=== PATIENT | male | born 1950 | race Caucasian/White ===

== ENCOUNTER 2020-08-01 06:06 | Outpatient (REF) | payer MEDICARE, SELFPAY ==
[2020-08-01 07:19] LABS: MANUAL DIFF FLAG NO
[2020-08-01 07:42] LABS: Glucose Urine UA NEG (NEG); Leukocyte Esterase Urine NEG (NEG); Nitrite Urine NEG (NEG); Specific Gravity - Urine >= 1.030 (1.005-1.025); Urine Blood TRACE (NEG); Urine Ketones NEG (NEG); Urine Protein NEG (NEG-TRACE)
[2020-08-01 07:42] LABS: Basophils Percent Auto 0.6 % (0-2); Eosinophils Absolute Auto 0.1 X10*3/uL (0.0-0.4); Eosinophils Percent Auto 1.9 % (0-4); Hematocrit 48.9 % (42-52); Hemoglobin 16.2 g/dl (14.0-18.0); Imm Gran Abs Auto 0.02 X10*3/uL (0.00-0.03); Imm Gran Pct Auto 0.4 % (0.0-0.4); Lymphocytes Percent Auto 42.1 % (20-40); Mean Corpuscular HGB Conc 33.1 g/dl (31.0-36.0); Mean Corpuscular Volume 93.5 fL (80-98); Mean Platelet Volume 10.1 fL (9.4-12.4); Monocytes Absolute Auto 0.5 X10*3/uL (0.1-1.2); Neutrophils Absolute Auto 2.1 X10*3/uL (2.0-8.3); Platelet Count 228 X10*3/uL (160-400); Red Blood Count 5.23 X10*6/uL (4.60-5.80); Red Cell Distribution Width 13.9 % (11.0-16.0); White Blood Count 4.7 X10*3/uL (4.8-10.8)
[2020-08-01 07:43] LABS: Appearance Urine CLEAR; Color Urine YELLOW
[2020-08-01 07:55] LABS: RBC Urine 0-2 /HPF (0); WBC Urine 0 /HPF (0-4)
[2020-08-01 08:00] LABS: Creatinine Urine 162.83 mg/dL; Microalbum/Creatinine Ratio Ur 5.5 ug/mg cr
[2020-08-01 08:06] LABS: Alanine Aminotransferase 18 U/L (0-40); Albumin Level 4.4 g/dL (3.5-5.0); Alkaline Phosphatase 78 U/L (39-117); Anion Gap 13 (12-20); Aspartate Amino Transferase 25 U/L (5-37); Bilirubin Total 0.5 mg/dL (0.0-1.0); Blood Urea Nitrogen 13 mg/dL (9-16); Calcium 9.5 mg/dL (8.4-10.2); Carbon Dioxide 28 mmol/L (22-29); Chloride 104 mmol/L (96-108); Cholesterol 192 mg/dL; Estimated Glomerular Filt Rate > 60; Glucose Random 125 mg/dL (60-115); HDL Cholesterol 49 mg/dL; LDL Cholesterol Calculated 129 mg/dl; Potassium 4.7 mmol/l (3.3-5.1); Sodium 140 mmol/L (135-145); Total Protein 7.3 g/dL (6.5-8.0); Triglycerides 72 mg/dL
[2020-08-01 08:19] LABS: Prostate Specific Antigen 0.99 ng/mL (<0.05-4.0)
[2020-08-01 08:47] LABS: Estimated Average Glucose 134 mg/dL; Hemoglobin A1c % 6.3 %
== END 2020-08-01 06:07 | disposition home or self-care (01) ==
LOC: HO.LAB 06:06
PROVIDERS: Visit Provider Internal Medicine
DX: E78.00 Pure hypercholesterolemia, unspecified (principal); I10 Essential (primary) hypertension; N40.0 Benign prostatic hyperplasia without lower urinary tract symptoms; Z12.5 Encounter for screening for malignant neoplasm of prostate
CPT/HCPCS: 36415; 80053; 80061; 81001; 82043; 83036; 84153; 85025

== ENCOUNTER 2021-01-30 09:05 | Outpatient (REF) | payer MEDICARE, SELFPAY ==
[2021-01-30 10:17] LABS: Estimated Average Glucose 128 mg/dL; Hemoglobin A1c % 6.1 %
[2021-01-30 10:29] LABS: Anion Gap 12 (12-20); Blood Urea Nitrogen 15 mg/dL (9-16); Carbon Dioxide 30 mmol/L (22-29); Chloride 103 mmol/L (96-108); Estimated Glomerular Filt Rate > 60; Glucose Random 109 mg/dL (60-115); Sodium 140 mmol/L (135-145)
== END 2021-01-30 09:06 | disposition home or self-care (01) ==
LOC: HO.LAB 09:05
PROVIDERS: PCP Internal Medicine; Visit Provider Internal Medicine
DX: I10 Essential (primary) hypertension (principal); K21.9 Gastro-esophageal reflux disease without esophagitis; R73.03 Prediabetes
CPT/HCPCS: 36415; 80048; 83036

== ENCOUNTER 2021-06-11 09:56 | Outpatient (REF) | payer MEDICARE, SELFPAY ==
--- NOTE | ~2021-06-11 | XR_ITS ---
EXAMINATION: XR knee LT 2V, XR knee standing BI CLINICAL INFORMATION: Pain COMPARISON: Prior study 2018 TECHNIQUE: Bilateral frontal standing, left lateral and patella sunrise view. FINDINGS: BONES: No fracture or dislocation is present. JOINTS: Narrowing of joint spaces and developed osteophytes from the edges of articular surfaces suggest degenerative osteoarthritis. SOFT TISSUE: Normal XR/XR knee standing BI IMPRESSION: Progression of mild to moderate degenerative osteoarthritis involving particularly the medial compartments left more than right knee. No joint effusion.
--- NOTE | ~2021-06-11 | XR_ITS ---
EXAMINATION: XR knee LT 2V, XR knee standing BI CLINICAL INFORMATION: Pain COMPARISON: Prior study 2018 TECHNIQUE: Bilateral frontal standing, left lateral and patella sunrise view. FINDINGS: BONES: No fracture or dislocation is present. JOINTS: Narrowing of joint spaces and developed osteophytes from the edges of articular surfaces suggest degenerative osteoarthritis. SOFT TISSUE: Normal XR/XR knee LT 2V IMPRESSION: Progression of mild to moderate degenerative osteoarthritis involving particularly the medial compartments left more than right knee. No joint effusion.
== END 2021-06-11 09:57 | disposition home or self-care (01) ==
LOC: HO.HOSX 09:56
PROVIDERS: Visit Provider Physician Assistant
DX: M17.12 Unilateral primary osteoarthritis, left knee (principal); M25.561 Pain in right knee
CPT/HCPCS: 20610; 73560; 73565; 99202; J1040

== ENCOUNTER 2021-11-07 06:08 | Outpatient (REF) | payer MEDICARE, SELFPAY ==
[2021-11-07 06:43] LABS: MANUAL DIFF FLAG NO
[2021-11-07 07:30] LABS: Basophils Percent Auto 0.4 % (0-2); Eosinophils Absolute Auto 0.1 X10*3/uL (0.0-0.4); Eosinophils Percent Auto 2.5 % (0-4); Hematocrit 45.4 % (42.0-52.0); Hemoglobin 14.8 g/dl (14.0-18.0); Imm Gran Abs Auto 0.01 X10*3/uL (0.00-0.03); Imm Gran Pct Auto 0.2 % (0.0-0.4); Lymphocytes Absolute Auto 1.6 X10*3/uL (1.2-4.9); Lymphocytes Percent Auto 34.8 % (20-40); Mean Corpuscular HGB Conc 32.6 g/dl (31.0-36.0); Mean Corpuscular Volume 95.2 fL (80.0-98.0); Mean Platelet Volume 9.8 fL (9.4-12.4); Monocytes Absolute Auto 0.6 X10*3/uL (0.1-1.2); Monocytes Percent Auto 12.7 % (2-11); Neutrophils Absolute Auto 2.2 x10*3/uL (2.0-8.3); Neutrophils Percent Auto 49.4 % (45-73); Platelet Count 192 X10*3/uL (160-400); Red Blood Count 4.77 X10*6/uL (4.60-5.80); Red Cell Distribution Width 13.9 % (11.0-16.0); White Blood Count 4.5 X10*3/uL (4.8-10.8)
[2021-11-07 07:31] LABS: Appearance Urine CLEAR; Color Urine YELLOW; Glucose Urine UA NEG (NEG); Leukocyte Esterase Urine NEG (NEG); Nitrite Urine NEG (NEG); Specific Gravity - Urine 1.025 (1.005-1.025); Urine Blood TRACE (NEG); Urine Ketones NEG (NEG); Urine Protein NEG (NEG-TRACE)
[2021-11-07 07:47] LABS: Creatinine Urine 132.67 mg/dL; Microalbum/Creatinine Ratio Ur 8.2 ug/mg cr
[2021-11-07 07:55] LABS: Estimated Average Glucose 128 mg/dL; Hemoglobin A1c % 6.1 %
[2021-11-07 08:01] LABS: Alanine Aminotransferase 14 U/L (0-40); Albumin Level 4.3 g/dL (3.5-5.0); Alkaline Phosphatase 76 U/L (39-117); Anion Gap 12 (12-20); Aspartate Amino Transferase 23 U/L (5-37); Bilirubin Total 0.2 mg/dL (0.0-1.0); Blood Urea Nitrogen 19 mg/dL (9-16); Calcium 9.4 mg/dL (8.4-10.2); Carbon Dioxide 27 mmol/L (22-29); Chloride 103 mmol/L (96-108); Cholesterol 181 mg/dL; Estimated Glomerular Filt Rate > 60; Glucose Random 111 mg/dL (60-115); HDL Cholesterol 49 mg/dL; LDL Cholesterol Calculated 121 mg/dl; Sodium 137 mmol/L (135-145); Total Protein 6.9 g/dL (6.5-8.0); Triglycerides 59 mg/dL
[2021-11-07 08:05] LABS: RBC Urine 0-2 /HPF (0); WBC Urine 0 /HPF (0-4)
[2021-11-07 08:06] LABS: Calcium Oxalate Crystals Urine 4+ /LPF; Squamous Epithelial Cell Urine TRACE /LPF
[2021-11-07 08:09] LABS: Prostate Specific Antigen 0.83 ng/mL (<0.05-4.0)
== END 2021-11-07 06:09 | disposition home or self-care (01) ==
LOC: HO.LAB 06:08
PROVIDERS: PCP Internal Medicine; Visit Provider Internal Medicine
DX: Z12.5 Encounter for screening for malignant neoplasm of prostate (principal); I10 Essential (primary) hypertension; E78.00 Pure hypercholesterolemia, unspecified; K21.9 Gastro-esophageal reflux disease without esophagitis; N40.0 Benign prostatic hyperplasia without lower urinary tract symptoms; R73.03 Prediabetes
CPT/HCPCS: 36415; 80053; 80061; 81001; 82043; 83036; 84153; 85025

== ENCOUNTER 2022-09-07 09:23 | Day surgery (SDC) | payer MEDICARE, SELFPAY ==
--- NOTE | 2022-09-07 09:34 | P.CONAN_ITS ---
HPI - Anesthesia Eval Consult details Narrative: colonoscopy PMFSH Active Problems Active Problems: All Active Problems (Updated 09/04/22 @ 12:26 by Savannah Shea, RN) Osteoarthritis of left knee (Acute) Past Medical History Medical History (Updated 09/04/22 @ 12:26 by Savannah Shea, ZAHEER) GERD (gastroesophageal reflux disease) HTN (hypertension) Hyperlipidemia Kidney stones Tubular adenoma Family History Family history of problems with anesthesia: No Surgical History Surgical History (Updated 09/04/22 @ 12:26 by Savannah Shea RN) H/O colonoscopy H/O cystoscopy H/O esophagogastroduodenoscopy History of tonsillectomy History of Problems with Anesthesia: No Social History Social History (Updated 06/11/21 @ 13:55 by Mando Sinclair) Advance Directives: No Advance Directives Information Provided: Yes Current occupational status: employed Current occupation: rt handed/self employed Meds Allergies Allergy/AdvReac Type Severity Reaction Status Date / Time Seasonal Allergies Allergy Mild sneez Verified 06/11/21 13:52 Active Medications: Current Medications Sodium Biphosphate/Sodium Phosphate (Sodium Phosphate,[place]-Dibasic 133 Ml Enema) [address] ONCE PRN PRN Reason: Poor Colonoscopy Prep Results Home Medications Medication Instructions Recorded Confirmed Last Taken Type atorvastatin 20 mg tablet 20 mg PO DAILY 06/11/21 Unknown History esomeprazole magnesium 20 mg 20 mg PO DAILY 06/11/21 Unknown History capsule,delayed release (Nexium) losartan 50 mg tablet 1 tab PO DAILY 09/04/22 09/04/22 Unknown History Exam Exam Date and Time: September 07, 2022 0934 Airway Mallampati Class: II TM Dist: >3cm Neck ROM: Limited Heart: rrr Lungs: cta Assessment and Plan Assessment Anesthesia Assessment: Anesthesia Plan Discussed, Smoking Cess. Discussed and Chart Reviewed Final Anesthetic Review Family History of Problems with Anesthesia: No History of Problems with Anesthesia: No NPO: Yes ASA Class: II Final Preanesthetic Review: No Changes in Pt Med Stat, Meds/Allgs Chart Reviewed, Consent Obtained/Reviewed and Anes Risks/Benef Reviewed Patient Risk: Low Anesthetic Plan Anesthetic Plan: MAC: Disposition: Standard PACU
[2022-09-07 10:01] VITALS: BP 167/88; PULSE 97; RESP 16; TEMP 36.8; O2SAT 96; BMI 27.7
[2022-09-07 11:00] VITALS: BP 112/80; PULSE 86; RESP 10; TEMP 36.8; O2SAT 96
--- NOTE | 2022-09-07 11:01 | P.BOP_ITS ---
Brief Operative Note Date of Service: 09/07/22 Pre-op diagnosis: Screening Post-op diagnosis: other (Polyp) Procedure: Colonoscopy to the cecum and TI with bx/removal of polyp Surgeon: Deep Rey Anesthesia: MAC Was an Gallery Or Museum Technician used for this Procedure?: No Estimated blood loss (mL): 2.0 Pathology: other (A. Ascending colon polyp) Condition: stable Disposition: PACU
[2022-09-07 11:15] VITALS: BP 128/90; PULSE 98; RESP 16; TEMP 36.7; O2SAT 96
--- NOTE | 2022-09-07 12:50 | OP_ITS ---
SURGEON: Deep Rey MD INDICATIONS: The patient presents for evaluation of colorectal cancer screening and personal history of tubular adenoma of the colon. Full consent has been obtained from him for this, including risks of bleeding and perforation. PREOPERATIVE DIAGNOSIS: POSTOPERATIVE DIAGNOSIS: PROCEDURE PERFORMED: Colonoscopy to the cecum and terminal ileum with biopsy and removal of polyp. ESTIMATED BLOOD LOSS: COMPLICATIONS: ANESTHESIA: Monitored anesthesia care. ASSISTANTS: SPECIMENS: PREOPERATIVE DIAGNOSES: Colorectal cancer screening and personal history of tubular adenomas. POSTOPERATIVE DIAGNOSES: Colorectal cancer screening and personal history of tubular adenomas, small colon polyp, diverticulosis and internal hemorrhoids. DESCRIPTION OF PROCEDURE: The patient was placed in the left lateral decubitus position. The digital rectal exam revealed no abnormalities. The Olympus video pediatric colonoscope was then entered into the rectum and advanced easily to the cecum. Once in the cecum, I did identify normal-appearing cecal pouch with appendiceal orifice and normal-appearing ileocecal valve. The terminal ileum was cannulated and it appeared normal. The scope was withdrawn back in the colon. The entire cecum and ileocecal valve appeared normal. The scope was then slowly withdrawn assessing all mucosal surfaces carefully. Preparation was excellent. In the proximal ascending colon, there was an approximately 3 or 4 mm polyp which biopsied, completely removed with cold biopsy forceps. I did not visualize any other polyps, colitis nor angiodysplasia. There is a mild amount of sigmoid diverticulosis. In the rectum, scope was retroflexed visualizing small internal hemorrhoids but no other pathology. The rectal mucosa appeared normal. The scope was straightened and withdrawn from the patient. He tolerated the procedure well and was returned to the recovery area in stable condition. IMPRESSION: 1. Small colon polyp. 2. Diverticulosis. 3. Internal hemorrhoids. PLAN: The results of biopsies will be checked. I would recommend a repeat colonoscopy in 5 years for further surveillance. He would otherwise see me on a p.r.n. basis. MD ELLIOT Alejo/BENSON / [id number] MTDD
== END 2022-09-07 11:41 | disposition home or self-care (01) ==
PROVIDERS: PCP Internal Medicine; Visit Provider Internal Medicine
PROC: 0DJD8ZZ Inspection of Lower Intestinal Tract, Via Natural or Artificial Opening Endoscopic (ICD-10-PCS; CPT 45378; principal; 2022-09-07 10:30)
DX: Z12.11 Encounter for screening for malignant neoplasm of colon (principal); Z86.010 Personal history of colon polyps; D12.2 Benign neoplasm of ascending colon; K57.30 Diverticulosis of large intestine without perforation or abscess without bleeding; K64.8 Other hemorrhoids; K21.9 Gastro-esophageal reflux disease without esophagitis; I10 Essential (primary) hypertension; E78.5 Hyperlipidemia, unspecified; Z79.899 Other long term (current) drug therapy; Z87.442 Personal history of urinary calculi; Z87.891 Personal history of nicotine dependence
CPT/HCPCS: 45380; 88305

== ENCOUNTER 2022-09-11 13:15 | Outpatient (REF) | payer MEDICARE, SELFPAY ==
[2022-09-11 13:53] LABS: Estimated Average Glucose 123 mg/dL; Hemoglobin A1c % 5.9 %
[2022-09-11 14:26] LABS: Anion Gap 13 (12-20); Blood Urea Nitrogen 17 mg/dL (9-16); Calcium 9.5 mg/dL (8.4-10.2); Carbon Dioxide 27 mmol/L (22-29); Chloride 105 mmol/L (96-108); Estimated Glomerular Filt Rate > 60; Glucose Random 151 mg/dL (60-115); Potassium 4.4 mmol/L (3.3-5.1); Sodium 141 mmol/L (135-145)
== END 2022-09-11 13:16 | disposition home or self-care (01) ==
LOC: HO.LAB 13:15
PROVIDERS: PCP Internal Medicine; Visit Provider Internal Medicine
DX: I10 Essential (primary) hypertension (principal); R73.03 Prediabetes
CPT/HCPCS: 36415; 80048; 83036

== ENCOUNTER 2022-12-11 06:00 | Outpatient (REF) | payer MEDICARE, SELFPAY ==
[2022-12-11 06:19] LABS: MANUAL DIFF FLAG NO
[2022-12-11 07:29] LABS: Basophils Percent Auto 0.4 % (0-2); Eosinophils Absolute Auto 0.1 X10*3/uL (0.0-0.4); Eosinophils Percent Auto 2.3 % (0-4); Hematocrit 47.8 % (42.0-52.0); Hemoglobin 15.6 g/dl (14.0-18.0); Imm Gran Abs Auto 0.01 X10*3/uL (0.00-0.03); Imm Gran Pct Auto 0.2 % (0.0-0.4); Lymphocytes Absolute Auto 1.7 X10*3/uL (1.2-4.9); Lymphocytes Percent Auto 34.8 % (20-40); Mean Corpuscular HGB Conc 32.6 g/dl (31.0-36.0); Mean Corpuscular Hemoglobin 30.6 pg (27.0-33.0); Mean Corpuscular Volume 93.9 fL (80.0-98.0); Mean Platelet Volume 9.8 fL (9.4-12.4); Monocytes Absolute Auto 0.6 X10*3/uL (0.1-1.2); Neutrophils Absolute Auto 2.4 x10*3/uL (2.0-8.3); Neutrophils Percent Auto 50.3 % (45-73); Platelet Count 220 X10*3/uL (160-400); Red Blood Count 5.09 X10*6/uL (4.60-5.80); White Blood Count 4.8 X10*3/uL (4.8-10.8)
[2022-12-11 07:36] LABS: Estimated Average Glucose 126 mg/dL
[2022-12-11 08:10] LABS: Alanine Aminotransferase 20 U/L (0-40); Albumin Level 4.3 g/dL (3.5-5.0); Alkaline Phosphatase 80 U/L (39-117); Anion Gap 10 (12-20); Aspartate Amino Transferase 29 U/L (5-37); Bilirubin Total 0.6 mg/dL (0.0-1.0); Blood Urea Nitrogen 18 mg/dL (9-16); Calcium 9.8 mg/dL (8.4-10.2); Carbon Dioxide 31 mmol/L (22-29); Chloride 105 mmol/L (96-108); Cholesterol 175 mg/dL; Estimated Glomerular Filt Rate > 60; Glucose Fasting 126 mg/dL (60-99); HDL Cholesterol 49 mg/dL; LDL Cholesterol Calculated 114 mg/dl; Potassium 5.1 mmol/L (3.3-5.1); Sodium 141 mmol/L (135-145); Total Protein 6.9 g/dL (6.5-8.0); Triglycerides 63 mg/dL
[2022-12-11 08:27] LABS: Prostate Specific Antigen 0.84 ng/mL (<0.05-4.0)
== END 2022-12-11 06:01 | disposition home or self-care (01) ==
LOC: HO.LAB 06:00
PROVIDERS: PCP Internal Medicine; Visit Provider Internal Medicine
DX: Z00.00 Encounter for general adult medical examination without abnormal findings (principal); Z12.5 Encounter for screening for malignant neoplasm of prostate; R73.03 Prediabetes; E78.00 Pure hypercholesterolemia, unspecified; I10 Essential (primary) hypertension
CPT/HCPCS: 36415; 80053; 80061; 83036; 84153; 85025

== ENCOUNTER 2023-11-03 08:17 | Outpatient (REF) | payer MEDICARE, SELFPAY ==
--- NOTE | ~2023-11-03 | XR_ITS ---
EXAMINATION: XR CERVICAL SPINE CLINICAL INFORMATION: Left hand numbness; question degenerative disc disease. COMPARISON: None available. TECHNIQUE: 6 views of the cervical spine, inclusive of flexion and extension views, were obtained. FINDINGS: The vertebral alignment is normal. No intrinsic bony abnormality. The disc heights and neural foramina are well-maintained. There is multi-level mild anterior endplate arthropathy. There is bilateral neural foraminal narrowing extending from C3-C4 through C5-C6. There is multi-level cervical facet arthropathy. No fracture or subluxation. The surrounding prevertebral soft tissues are unremarkable. XR/XR cervical spine 5V IMPRESSION: 1. No acute fracture or spondylolisthesis is seen. 2. The cervical disc spaces are well-maintained. 3. There is multi-level mild cervical endplate arthropathy and facet arthropathy. 4. There is bilateral neural foraminal narrowing extending from C3-C4 through C5-C6.
== END 2023-11-03 08:18 | disposition home or self-care (01) ==
LOC: HO.XRAY 08:17
PROVIDERS: PCP Internal Medicine; Visit Provider Internal Medicine
DX: R20.0 Anesthesia of skin (principal)
CPT/HCPCS: 72050

== ENCOUNTER 2024-11-15 13:55 | Outpatient (AMB) | payer MEDICARE, SELFPAY ==
--- NOTE | 2024-11-15 13:58 | MHC.PC.OV ---
Vital Signs 11/15/24 14:10 Height 5 ft 11 in Weight 212 lb BMI 29.6 BP 124/80 Blood Pressure Location Lt brachial Position Sitting Pulse 99 Pulse Source Pulse Oximeter Temp 97.6 F Temp Source Axillary Pulse Oximetry (%) 97 Oxygen Delivery Method Room Air Intake Visit Reasons: Routine Pulverizer Tender Required: No Accompanied by: Self / Same As Patient Allergies Seasonal Allergies Allergy (Mild, Verified 11/15/24 14:46) sneez Medication List - Last Reconciled 11/15/24 by Ronnie Choudhury MD atorvastatin 20 mg PO DAILY esomeprazole magnesium (Nexium) 20 mg PO DAILY losartan 1 tab PO DAILY Tobacco use date assessed: 11/15/24 Fall risk assessment: No Falls in past year Dental Screening Dental Screen Date: 11/15/24 Did you have a dental visit in the last 12 months?: Yes Did you have a dental problem in the last 6 months where you did not have access to dental care?: No PFSH Medical History (Updated 11/15/24 @ 14:45 by Ronnie Choudhury MD) GERD (gastroesophageal reflux disease) Hyperlipidemia HTN (hypertension) Kidney stones Tubular adenoma Surgical History H/O cystoscopy History of tonsillectomy H/O colonoscopy H/O esophagogastroduodenoscopy Family History Mother No problems noted. Father No problems noted. Social History Housing: House Patient Tobacco Use Status: Former Tobacco user e-Cigarette/Vaping Use: Former Use service: No Current occupational status: employed Current occupation: rt handed/self employed Cognitive needs: No Hearing needs: No Vision needs: No Questionnaire PHQ-9 Over the last 2 weeks, how often have you been bothered by any of the following problems? 1. Little interest or pleasure in doing things: not at all 2. Feeling down, depressed, or hopeless: not at all 3. Trouble falling or staying asleep, or sleeping too much: not at all 4. Feeling tired or having little energy: not at all 5. Poor appetite or overeating: not at all 6. Feeling bad about yourself - or that you are a failure or have let yourself or your family down: not at all 7. Trouble concentrating on things, such as reading the newspaper or watching television: not at all 8. Moving or speaking so slowly that other people could have noticed. Or the opposite - being so fidgety or restless that you have been moving around a lot more than usual: not at all 9. Thoughts that you would be better off or of hurting yourself in some way: not at all Total score: 0 Depression Screening Interpretation: Negative Depression Screening Done: Yes Source: Developed by Drs. Deep Srivastava, Peg Neil, Jacky Mccurdy and colleagues, with an educational leigh from [employer]. Thrive Questionnaire Date Thrive assessed: 11/15/24 I am a: Patient Within the past 12 months, did the food you bought not last and you didn't have the money to get more?: Never true Within the past 12 months, did you worry whether your food would run out before you got money to buy more?: Never true Do you have trouble paying for medicines?: No Do you have trouble getting transportation to medical appointments?: No Do you have trouble paying your heating and electricity bill?: No Do you have trouble taking care of your child, family member or friend?: No Do you have trouble with day-to-day activities such as bathing, preparing meals, shopping, managing finances, etc.?: No Are you currently unemployed and looking for a job?: No Are you interested in more education?: No Currently or been in a relationship where the following occur: No concerns reported THRIVE Score: 0 AUDIT C Alcohol Use Questionnaire (AUDIT-C) 1. How often do you have a drink containing alcohol?: Monthly or less 2. How many drinks containing alcohol do you have on a typical day when you are drinking?: 1 or 2 3. How often do you have six or more drinks on one occasion?: Less than monthly Total Score: 2 KULWINDER-7 AMB Questionnaire KULWINDER-7 Date KULWINDER - 7 assessed: 11/15/24 Feeling nervous, anxious, or on edge: 0 = Not at all Not being able to stop or control worryin = Not at all Worrying too much about different things: 0 = Not at all Trouble relaxin = Not at all Being so restless that it is hard to sit still: 0 = Not at all Becoming easily annoyed or irritable: 0 = Not at all Feeling afraid as if something awful might happen: 0 = Not at all Total KULWINDER-7 score (0-4 normal; 5-9 mild; 10-14 moderate; 15-21 severe): 0 Source: Developed by Drs. Deep Srivastava, Peg Neil, Jacky Mccurdy and colleagues, with an educational leigh from [employer]. Physical exam (Primary Care) Vital Signs: Last Vital Signs Temp 97.6 F 11/15/24 14:10 Pulse 99 11/15/24 14:10 BP 124/80 11/15/24 14:10 Pulse Ox 97 11/15/24 14:10 Oxygen Delivery Method Room Air 11/15/24 14:10 Care Plan Goal for BP management: BP is in range. BMI result Body Mass Index 29.6 Tobacco/Smoking Status: Tobacco use Status Tobacco use date assessed 11/15/24 11/15/24 14:02 Patient Tobacco Use Status Former Tobacco user 11/15/24 14:14 e-Cigarette/Vaping Use Former Use 11/15/24 14:14 PHQ-9: PHQ-9 Score PHQ-9: Total score 0 11/15/24 14:17 Depression Screening Interpretation: Negative Thrive Assessment: Date of Thrive Assessment Date Thrive assessed 11/15/24 11/15/24 14:02 Currently or been in a relationship where the following occur: No concerns reported Advance Care Planning discussion: Exists, not on file Date of discussion: 11/15/24 Who was present: Patient Forms completed: Health Care Proxy Actual minutes spent: 5 Coding Level of Care Code New Pt Level 4 (53903) Complex EM visit Add On G2211 Diagnoses HTN (hypertension) I10 Hyperlipidemia E78.5 Additional Codes Vital Signs *Quality* - Advance Care Planning discussion: Exists, not on file ([id number]) Assessment & Plan Assessment & Plan (1) HTN (hypertension): Code(s): I10 - Essential (primary) hypertension Category: Medical Plan: BP in range. Continue meds at same dosage (2) Hyperlipidemia: Code(s): E78.5 - Hyperlipidemia, unspecified Category: Medical Plan: BW will be ordered. Plan History of Present Illness The patient is a 74-year-old male presenting for a wellness visit and routine blood work evaluation. He describes experiencing arthritis, which primarily impacts his hand and knee. The arthritis results in periodic swelling, which fluctuates. He manages his condition with the use of extra strength Tylenol as needed. The patient adheres to his medication regimen with assistance from an automated pharmacy system and does not require any immediate refills. Fasting blood work, including cholesterol and glucose levels, is overdue and is to be addressed. A prior colonoscopy was completed with Dr. Rey a few years ago. Recent eye examination results were normal. 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 - Resides with his of 52 years. - Has a son who is a correspondence school teacher and works with him. - Denies smoking. - Maintains the ability to drive, including at night, without visual disturbances. - Reports having completed a legal will, trust, and has a healthcare proxy in place. Review of Systems - Musculoskeletal: Reports arthritis in hand and knee. - Vision: Denies visual disturbances such as halos. - General: Denies any additional symptoms or health concerns. - Neurological: Denies any issues with driving. Physical Exam General: Cooperative and healthy appearing Nutritional Appearance: Well nourished Orientation/consciousness: Patient oriented x3 Limitations: No limitations Head: Normal to inspection General: Appearance normal, both eyes and all related structures Neck: Normal visual inspection Chest: Normal palpation of entire chest wall Respiratory: Normal respiratory effort Neurology: Patient oriented x3 Results Plan Plans include undertaking fasting blood work to evaluate cholesterol and glucose levels, managing arthritis with extra strength Tylenol, and arranging a six-month follow-up visit. Patient was advised on the procedure for refills through the pharmacy and should any symptoms of arthritis worsen, a reevaluation of treatment would be necessary. Patient was informed and verbally consented to the use of an ambient scribe for clinic note documentation during this visit. Discussion Notes During today's visit, I discussed with the patient the management of his arthritis using extra strength Tylenol and advised on obtaining fasting blood work to check cholesterol and glucose levels. I encouraged the continuation of using automated services at the pharmacy for medicine refills. Follow-up is planned within six months, at which point results will be reviewed. The patient seemed satisfied with the management plans discussed. Patient Instructions - Have fasting blood work done for cholesterol and glucose levels. - Continue using extra strength Tylenol for arthritis as needed. - Contact your pharmacy for medication refills. - Return for a follow-up visit in six months. - Discuss any worsening of arthritis symptoms with my office. Orders: Orders Lipid Panel Today E78.5 - Hyperlipidemia, unspecified, I10 - Essential (primary) hypertension Liver Panel Today E78.5 - Hyperlipidemia, unspecified, I10 - Essential (primary) hypertension Complete Blood Count no Diff Today E78.5 - Hyperlipidemia, unspecified, I10 - Essential (primary) hypertension Basic Metabolic Panel Today E78.5 - Hyperlipidemia, unspecified, I10 - Essential (primary) hypertension Thyroid Stimulating Hormone Today E78.5 - Hyperlipidemia, unspecified, I10 - Essential (primary) hypertension UA and rflx microscopic Today E78.5 - Hyperlipidemia, unspecified, I10 - Essential (primary) hypertension
[2024-11-15 14:10] VITALS: BP 124/80; PULSE 99; TEMP 36.4; O2SAT 97; BMI 29.6
== END 2024-11-15 14:42 | disposition home or self-care (01) ==
LOC: HO.HMCHD 13:56
PROVIDERS: PCP Internal Medicine; Visit Provider Internal Medicine
DX: I10 Essential (primary) hypertension (principal); E78.5 Hyperlipidemia, unspecified; Z00.00 Encounter for general adult medical examination without abnormal findings

== ENCOUNTER → 2024-11-15 13:55 | Outpatient (BNVA) | payer MEDICARE, SELFPAY | PROVIDERS: PCP Internal Medicine; Visit Provider Internal Medicine | DX: I10 Essential (primary) hypertension (principal); E78.5 Hyperlipidemia, unspecified | CPT/HCPCS: 99202 ==

== ENCOUNTER 2024-11-27 06:12 | Outpatient (REF) | payer MEDICARE, SELFPAY ==
[2024-11-27 07:25] LABS: Appearance Urine Clear; Color Urine Yellow; Glucose Urine UA Negative (Negative); Leukocyte Esterase Urine Negative (Negative); Nitrite Urine Negative (Negative); PH 6.5 (5.0-9.0); Specific Gravity - Urine 1.025 (1.005-1.025); Urine Blood Negative (Negative); Urine Ketones Negative (Negative); Urine Protein Trace mg/dL (Neg-Trace)
[2024-11-27 07:35] LABS: Hematocrit 47.2 % (42.0-52.0); Hemoglobin 15.8 g/dl (14.0-18.0); Mean Corpuscular HGB Conc 33.5 g/dl (31.0-36.0); Mean Corpuscular Hemoglobin 30.9 pg (27.0-33.0); Mean Corpuscular Volume 92.2 fL (80.0-98.0); Platelet Count 205 X10*3/uL (160-400); Red Blood Count 5.12 X10*6/uL (4.60-5.80); Red Cell Distribution Width 14.2 % (11.0-16.0); White Blood Count 4.9 X10*3/uL (4.8-10.8)
[2024-11-27 08:02] LABS: Alanine Aminotransferase 19 U/L (0-40); Albumin Level 4.3 g/dL (3.5-5.0); Alkaline Phosphatase 88 U/L (39-117); Anion Gap 12 (12-20); Aspartate Amino Transferase 31 U/L (5-37); Bilirubin Direct 0.1 mg/dL (0.0-0.5); Bilirubin Total 0.5 mg/dL (0.0-1.0); Blood Urea Nitrogen 17 mg/dL (9-16); Calcium 9.4 mg/dL (8.4-10.2); Carbon Dioxide 27 mmol/L (22-29); Chloride 105 mmol/L (96-108); Cholesterol 186 mg/dL (<200); Estimated Glomerular Filt Rate > 60; Glucose Random 119 mg/dL (60-115); HDL Cholesterol 50 mg/dL (>40); LDL Cholesterol Calculated 112 mg/dL (<100); Potassium 4.4 mmol/L (3.3-5.1); Sodium 140 mmol/L (135-145); Total Protein 7.4 g/dL (6.5-8.0); Triglycerides 120 mg/dL (<150)
[2024-11-27 08:32] LABS: Thyroid Stimulating Hormone 1.83 uIU/mL (0.32-4.0)
== END 2024-11-27 06:13 | disposition home or self-care (01) ==
LOC: HO.LAB 06:12
PROVIDERS: PCP Internal Medicine; Visit Provider Internal Medicine
DX: I10 Essential (primary) hypertension (principal); E78.5 Hyperlipidemia, unspecified
CPT/HCPCS: 36415; 80048; 80061; 80076; 81003; 84443; 85027

== ENCOUNTER 2025-05-17 09:13 | Outpatient (REF) | payer MEDICARE, SELFPAY ==
[2025-05-17 09:57] LABS: Hematocrit 48.2 % (42.0-52.0); Hemoglobin 15.9 g/dl (14.0-18.0); Mean Corpuscular HGB Conc 33.0 g/dl (31.0-36.0); Mean Corpuscular Hemoglobin 30.8 pg (27.0-33.0); Mean Corpuscular Volume 93.2 fL (80.0-98.0); NRBC Abs Auto 0.000 X10*3/uL (0.0-0.012); NRBC Pct Auto 0.0 /100WBC (0.0-0.2); Platelet Count 207 X10*3/uL (160-400); Red Blood Count 5.17 X10*6/uL (4.60-5.80); White Blood Count 5.5 X10*3/uL (4.8-10.8)
[2025-05-17 10:02] LABS: Appearance Urine Clear; Glucose Urine UA Negative (Negative); PH 7.0 (5.0-9.0); Specific Gravity - Urine 1.020 (1.005-1.025)
== END 2025-05-17 09:14 | disposition home or self-care (01) ==
LOC: HO.10HDL 09:13
PROVIDERS: Visit Provider Physician Assistant Medical
DX: R10.9 Unspecified abdominal pain (principal); Z87.442 Personal history of urinary calculi
CPT/HCPCS: 36415; 81003; 85027

== ENCOUNTER 2025-06-04 16:28 | Outpatient (REF) | payer MEDICARE, SELFPAY ==
--- NOTE | ~2025-06-04 | CT_ITS ---
EXAMINATION: CT ABDOMEN AND PELVIS WITHOUT CONTRAST CLINICAL INFORMATION: Lower abdominal pain, flank pain, history of kidney stones COMPARISON: August [id number] TECHNIQUE: Multidetector volumetric imaging was performed from the superior aspect of the liver through the pubic symphysis. Sagittal and coronal reformatted images were obtained on the technologist's workstation. This CT examination was performed using dose optimization techniques as appropriate, variously including the following: *Automated exposure control *Adjustment of mA and/or kV according to patient size (this includes techniques or standardized protocols for targeted exams where dose is matched to indication/reason for exam; i.e. extremities or head) *Use of iterative reconstruction technique FINDINGS: LUNG BASES: The visualized lung bases are unremarkable. LIVER, GALLBLADDER, AND BILIARY TREE: Geographic fatty changes present liver sparing the left hepatic lobe, caudate lobe, and inferior right hepatic lobe. The gallbladder is unremarkable with no evidence of radiopaque gallstones, gallbladder wall thickening, or obvious pericholecystic inflammatory changes. PANCREAS: Unremarkable. SPLEEN: Unremarkable. ADRENAL GLANDS: Unremarkable. KIDNEYS AND URETERS: There are 3 calcifications in the lower pole left kidney measuring between 2-3 mm probably representing stones. No stones are identified. There is no hydronephrosis. BLADDER: Unremarkable. GASTROINTESTINAL TRACT: There is a very small sliding hiatal hernia involving gastric cardia. A normal appendix is identified. There are a few pseudodiverticula of the rectosigmoid junction and in the descending colon. There is at least one pseudodiverticulum in the distal transverse colon. There is no wall thickening or fat stranding. ABDOMINAL WALL: Small umbilical hernia contains adipose tissue There is a very small fat-containing right inguinal hernia. No change There is a suspected lipoma in the left spermatic cord but hernia is not entirely ruled out. No change LYMPH NODES: Normal. VASCULAR: Multifocal vascular calcifications are present PELVIC VISCERA: Unremarkable. OSSEOUS STRUCTURES: Mild to moderate degenerative disc disease is present in the lower lumbar spine. CT/CT abdomen pelvis wo IV con IMPRESSION: There are 3 stones in the lower pole left kidney measuring 2 - 3 mm. There is a very small sliding hiatal hernia. Diverticulosis, no sign of infection. Geographic fatty changes are present involving the right hepatic lobe. Fleischner guidelines were followed. Electronically signed by: Ray Weiss MD 06/04/2025 05:29 PM EST [facility]
== END 2025-06-04 16:29 | disposition home or self-care (01) ==
LOC: HO.CT 16:28
PROVIDERS: PCP Physician Assistant Medical; Visit Provider Physician Assistant Medical
DX: R10.9 Unspecified abdominal pain (principal); Z87.442 Personal history of urinary calculi
CPT/HCPCS: 74176

== ENCOUNTER → 2025-06-04 16:29 | Outpatient (BNV) | payer MEDICARE, SELFPAY | PROVIDERS: PCP Physician Assistant Medical; Visit Provider Radiology Diagnostic Radiology | DX: N20.0 Calculus of kidney (principal); K44.9 Diaphragmatic hernia without obstruction or gangrene; K57.30 Diverticulosis of large intestine without perforation or abscess without bleeding | CPT/HCPCS: 74176 ==